=== PATIENT | female | born 1980 | race Caucasian/White ===

== ENCOUNTER 2017-01-04 10:21 | Emergency (ER) | payer MEDICAID ==
[2017-01-04] MEDS ORDERED: IBUPROFEN 600 MG TAB PO ONE ×2 (10:43→10:45)
[2017-01-04 10:57] VITALS: BP 113/77; PULSE 87; RESP 16; TEMP 97.9; O2SAT 96
[2017-01-04] MEDS ORDERED: TDAP ADULT 0.5 ML INJ (BOOSTRIX) IM ONE (12:02)
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
== END 2017-01-04 12:13 | disposition home or self-care (01) ==
LOC: EDSEX → CED 10:21
DX: S87.81XA Crushing injury of right lower leg, initial encounter (principal); S93.401A Sprain of unspecified ligament of right ankle, initial encounter; M25.461 Effusion, right knee; W20.8XXA Other cause of strike by thrown, projected or falling object, initial encounter; V28.2XXA Unspecified motorcycle rider injured in noncollision transport accident in nontraffic accident, initial encounter
CPT/HCPCS: 73564-PO; 73610-PO; 73630-PO; 99202-PO; G0463-PO

== ENCOUNTER 2017-01-09 12:12 | Emergency (ER) | payer MEDICAID ==
[2017-01-09 12:53] VITALS: BP 136/73; PULSE 86; RESP 16; TEMP 98.6; O2SAT 96
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
== END 2017-01-09 14:56 | disposition home or self-care (01) ==
LOC: CED 12:12
DX: S80.11XD Contusion of right lower leg, subsequent encounter (principal)
CPT/HCPCS: 93971-PO; 99214-PO; G0463-PO; L1830